=== PATIENT | male | born 1970 | race Caucasian/White ===

== ENCOUNTER 2021-07-25 01:12 | Emergency (ER) | payer BC ==
[~2021-07-25] VITALS: Ht 188 cm; Wt 90.7 kg
[2021-07-25 02:43] LABS: Source, Urine Voided
[2021-07-25 02:45] LABS: Bilirubin, Urine Neg (Neg); Blood, Urine 4+ (Neg); Glucose Qualitative, Urine Neg (Neg); Ketones, Urine Neg (Neg); Leukocyte Esterase, Urine Neg (Neg); Nitrite, Urine Neg (Neg); Protein, Urine 1+ (Neg); Specific Gravity, Urine 1.015 (1.003-1.022); Urobilinogen, Urine 1+ (Normal)
[2021-07-25 02:51] LABS: Appearance, Urine Hazy (Clear); Color, Urine Yellow (P-Yellow); Red Blood Cells, Urine 25-50 /hpf (0-2); Squamous Epithelial Cells Not Seen /hpf (Few); White Blood Cells, Urine 0-2 /hpf (0-5)
[2021-07-25 02:52] LABS: Amorphous Mod (0-Heavy); Bacteria Few /hpf
[2021-07-25] MEDS ORDERED: IBUP800 PO (03:33)
== END 2021-07-25 04:00 | disposition home or self-care (01) ==
LOC: ER 01:12
PROVIDERS: Emergency Medicine
DX: N13.30 Unspecified hydronephrosis (principal)
CPT/HCPCS: 81001; 96374; 99284-25; J1885